=== PATIENT | male | born 1965 | race African-American/Black ===

== ENCOUNTER 2016-09-06 15:05 | Emergency (ER) | payer MEDICARE, MEDICAID ==
[2016-09-06] MEDS ORDERED: NITROGLYCERINE 2 % OINTMENT PACK TOP ONE (15:09)
--- NOTE | 2016-09-06 15:14 | EDPRACDOC ---
- General Information Chief Complaint: Chest Pain Stated Complaint: CP Time Seen by Provider: 09/06/16 15:08 Home Medications: Home Medications CloNIDine (Antihypertensive) [Catapres-TTS 1 (0.1 mg/24 hrs)] 0.1 mg TOP We@ 0900 #4 patch 05/29/16 Furosemide [Lasix] 40 mg PO DAILY #30 tablet 05/29/16 Lorazepam [Ativan] 1 mg PO Q6H PRN #60 tablet 05/29/16 Losartan/Hydrochlorothiazide [Hyzaar 100-12.5 Tablet] 1 tab PO DAILY #30 tablet 05/29/16 Nicotine [Nicoderm] 21 mg TOP Q24H #30 pat 05/29/16 Propranolol HCl [Inderal] 20 mg PO TID #100 tablet 05/29/16 Ondansetron [Zofran Odt] 4 mg PO Q6H PRN #20 tab.rapdis 09/06/16 Oxycodone HCl [Oxycodone Immediate Release] 10 mg PO Q6H PRN #30 tab 09/06/16 Allergies/Adverse Reactions: Allergies Allergy/AdvReac Type Severity Reaction Status Date / Time No Known Allergies Allergy Verified 07/03/16 17:37 - History of Present Illness HPI: PATIENT PRESENTS WITH BURNING CHEST PAIN MIDSTERNUM SINCE LAST NIGHT. GIVEN NITRO AND ASPIRIN WHICH HE FEELS HELPED HIS CHEST PAIN SLIGHTLY. NOT ASSOCIATED WITH EXERTION. HX OF ETOH ABUSE AND PANCREATITIS. Chest Pain Location: Reports: Substernal Pain Radiation: Reports: None Symptoms Occur: Reports: Suddenly Cardiac Risk Factors: Reports: Smoker, Hyperlipidemia, Hypertension Cardiac History of: Reports: Similar Pain in Past (WITH DRINKING ETOH) PE Risk Factors: Reports: None Medications within 24 Hours: Reports: Aspirin, Nitro Prehospital Care: Reports: SL NTG, ASA Pain Came On: Reports: Gradually Pain Status: Present Now Pain Description: Reports: Burning Pain Severity: Mild Pain Worsens With: Reports: Nothing Pain Improves With: Reports: Nitroglycerin Associated Signs and Symptoms: Reports: None ED Past Medical History - History Reviewed Yes Nurses notes reviewed and agree except as marked Travel Outside of [place] in the Last 3 Months?: No - Patient Medical History Neurological History: Reports: Seizures (History of seizures with DTs in the past.) Cardiac History: Reports: Hypertension. Denies: Coronary Artery Disease, Atrial Fibrillation, Congestive Heart Failure, Hypercholesterolemia Respiratory History: Reports: COPD, Cough (Morning cough), Chronic Bronchitis. Denies: Aspiration Pneumonia GI/ History: Reports: Renal Disease, Gastroesophageal Reflux, Pancreatitis Musculoskeletal History: Reports: Osteoarthritis Psychological History: Reports: Anxiety, Substance Use Disorder. Denies: Depression Systemic History: Denies: Diabetes, Hyperthyroidism Surgical History: Reports: Other (Neck surgery to repair a laceration) - Family Medical History Reports: Hypertension (Father), Diabetes (Aunt), Cancer (Mother). Denies: Stroke - Social Medical History Smoking Status: Current some day smoker (Can smoke up to 1 pack a day) Social History: Reports: Substance Use Disorder ETOH: Alcoholic Lives With: Family Lives In: Home EDM Review of Systems - Review of Systems ROS Negative Except as Marked: Yes All systems reviewed and were negative except as marked Constitutional: No Symptoms Reported. negative: Fever, Chills, Weakness, Fatigue, Loss of Appetite Eyes: No Symptoms Reported. negative: Redness, Blurred Vision, Double Vision, Discharge, Pain, Light Sensitive, Photophobia Ears: No Symptoms Reported. negative: Pain, Hearing Loss, Drainage, Ear Pulling Throat: No Symptoms Reported. negative: Pain, Swelling Nose: No Symptoms Reported. negative: Congestion, Bleeding, Discharge, Injection, Swelling, Deformity, Ecchymosis, Tender, Abrasion, Laceration Mouth: No Symptoms Reported. negative: Pain, Drooling Respiratory: No Symptoms Reported. negative: Cough, Brassy Cough, Barky Cough, Shortness of Breath, Wheezing, Hemoptysis Cardiovascular: Chest Pain. negative: Cyanosis, Edema, Orthopnea, Palpitations , PND, Syncope, Skin Mottling Gastrointestinal: No Symptoms Reported. negative: Pain, Constipation, Nausea, Vomiting, Diarrhea, Melena, Formula Intolerance Genitourinary: No Symptoms Reported. negative: Dysuria, Hematuria, Frequency, Discharge, Bleeding, Testicular Pain, Neurological: No Symptoms Reported. negative: Headache, Dizziness, Seizure, Numbness, Weakness, Speech Difficulty, Gait Difficulty Musculoskeletal: No Symptoms Reported. negative: Neck, Chestwall, Ribs, Back, Shoulder, Arm, Elbow, Forearm, Wrist, Hand, Pelvis, Hip, Femur, Knee, Leg, Ankle , Foot Integumentary: No Symptoms Reported. negative: Itching, Rash, Bruising, Wound Allergic/Immunologic: No Symptoms Reported. negative: Hives, Itching Hematologic: No Symptoms Reported. negative: Lymphadenopathy, Easy Bruising, Easy Bleeding Endocrine: No Symptoms Reported. negative: Weight Gain, Weight Loss Psychiatric: No Symptoms Reported. negative: Anxiety, Depression, Hallucinations, Insomnia, Suicidal - Physical Exam Constitutional: Alert (Awake), No apparent distress Oriented to: Time, Person, Place Last recorded Vital Signs: Oxygen Pulse Oxygen Saturation O2 Device Oxygen Flow Rate Fraction of Inspired Oxygen ( FIO2) - HEENT Head: Normal ( normocephalic) Eye Exam: Normal (PERRL, EOMI, Sclera white) Oropharynx: Normal (Pharynx:Moist without exudate,Gums-no swelling) Tympanic Membrane: Normal ENT EAC: Normal TMJ: Normal Nose: No Symptoms Reported (septum midline) Neck: Normal (FROM, trachea at midline) - Respiratory/Cardiovascular Respiratory: Normal - CTA (BBS clear to auscultation without adventitious sounds ) Cardiovascular: Normal (RRR without murmur, gallop or rub) - GI Auscultation: Normal (NABS) Palpation: Normal (Soft,No rebound or guarding, non distended) Tenderness: Non tender Quiñones's Sign: Negative - Musculoskeletal Back: Normal (Non-Tender) Extremities: Normal (Normal tone, Pulses 2+ No cyanosis or edema, FROM) - Integumentary Skin: Normal, Warm, Dry Lymphatics: Normal (no adenopathy) - Neurologic Memory Impaired: Normal Motor Function: Normal (Normal tone, Pulses 2+ No cyanosis or edema, FROM) Cranial Nerve: Normal (CN II-X11 intact sensation, strength 5/5) Cerebellar: Normal Mood Description: Normal Perception: Normal - Differential Diagnosis Angina, Chest wall pain, Pancreatitis - Action Patient received Aspirin within last 24 hours?: Yes ASA given in the ED: No Aspirin therapy held due to: Other-specify below* (GIVEN BY EMS) Patient received Beta Meme within last 24hrs: Yes - Results 09/06/16 15:15 09/06/16 15:15 - EKG EKG #1 EKG Time: 15:11 -: Yes EKG interpreted by me Rate: bpm: 84 [place]: Normal Rhythm: NSR Block: None Hypertrophy: None ST: Normal - Departure Yes I personally saw and evaluated the patient. Disposition: Home Condition: Good Final Diagnosis: Pancreatitis Qualifiers: Chronicity: acute Pancreatitis type: alcohol induced Acute pancreatitis complication: unspecified Qualified Code(s): K85.20 - Alcohol induced acute pancreatitis without necrosis or infection Instructions: Pancreatitis (ED) Education/Counseling Given To: Patient Education/Counseling Given Regarding: Diagnosis, Treatment, Prognosis, Follow Up Referrals: None,No Provider [Primary Care Provider] - One Week Alexandro Aleman MD [Staff Physician] - One Week Prescriptions: Ondansetron [Zofran Odt] 4 mg PO Q6H PRN #20 tab.rapdis PRN Reason: Nausea/Vomiting Oxycodone HCl [Oxycodone Immediate Release] 10 mg PO Q6H PRN #30 tab PRN Reason: Pain
[2016-09-06 15:25] VITALS: TEMP 97.9; BMI 29.0
--- NOTE | 2016-09-06 15:25 | DIRPT ---
CLINICAL DATA: 51-year-old male with chest pain EXAM: PORTABLE CHEST 1 VIEW COMPARISON: Prior chest x-ray 07/03/2016 FINDINGS: The lungs are clear and negative for focal airspace consolidation, pulmonary edema or suspicious pulmonary nodule. No pleural effusion or pneumothorax. Cardiac and mediastinal contours are within normal limits. No acute fracture or lytic or blastic osseous lesions. The visualized upper abdominal bowel gas pattern is unremarkable. IMPRESSION: Negative chest x-ray. Electronically Signed By: Michael Jalloh M.D. On: 09/06/2016 15:22
[2016-09-06 15:29] LABS: AUTOMATED BASOPHIL 0.4 % (0-2); AUTOMATED EOSINOPHIL 4.1 % (0-5); AUTOMATED LYMPH 13.5 % (17-44); AUTOMATED MONOCYTE 16.5 % (3-10); AUTOMATED NEUTROPHIL 65.5 % (45-76); MPV 9.4 fL (7.4-10.4)
[2016-09-06] MEDS ORDERED: MORPHINE 4 MG/ML INJECTION IV ONE (15:34)
[2016-09-06] MEDS ORDERED: ONDANSETRON HCL 4 MG/2 ML VIAL IV ONE (15:34)
[2016-09-06 15:40] LABS: BLOOD UREA NITROGEN 13 MG/DL (9-20); CALCIUM 9.1 MG/DL (8.4-10.2); CALCULATED OSMOLALITY 260 MOs/Kg (270-290); CHLORIDE 95 mEq/L (98-107); GLUCOSE 95 MG/DL (70-99); SODIUM LEVEL 135 mEq/L (137-146); TOTAL PROTEIN 7.6 G/DL (6.3-8.2)
[2016-09-06 15:49] LABS: PARTIAL THROMB. TIME 25.2 SEC (22-35)
[2016-09-06] MEDS ORDERED: HYDROmorphone 1 MG INJECTION IV ONE (17:05)
[2016-09-06 17:38] VITALS: BP 148/95; PULSE 85
== END 2016-09-06 17:37 | disposition home or self-care (01) ==
LOC: ED 15:05
DX: K85.20 Alcohol induced acute pancreatitis without necrosis or infection (principal)
CPT/HCPCS: 36415; 71010; 80053; 83615; 83690; 83880; 84484; 85025; 85610; 85730; 93005; 96374; 96375; 99284; J1170; J2270; J2405; J3490

== ENCOUNTER 2016-09-14 12:04 | Emergency (ER) | payer MEDICARE, MEDICAID ==
[2016-09-14] MEDS ORDERED: NS 1,000 ML IV ONE (12:15)
[2016-09-14] MEDS ORDERED: HYDROmorphone 1 MG INJECTION IV ONE (12:16)
[2016-09-14] MEDS ORDERED: HYDROmorphone 1 MG INJECTION ONE (12:31)
[2016-09-14 12:34] LABS: AUTOMATED BASOPHIL 0.6 % (0-2); AUTOMATED EOSINOPHIL 11.2 % (0-5); AUTOMATED MONOCYTE 19.5 % (3-10); AUTOMATED NEUTROPHIL 36.7 % (45-76); MPV 8.9 fL (7.4-10.4)
[2016-09-14 13:01] LABS: BLOOD UREA NITROGEN 7 MG/DL (9-20); CALCIUM 8.5 MG/DL (8.4-10.2); CALCULATED OSMOLALITY 280 MOs/Kg (270-290); CHLORIDE 108 mEq/L (98-107); GLUCOSE 118 MG/DL (70-99); SODIUM LEVEL 146 mEq/L (137-146); TOTAL PROTEIN 6.8 G/DL (6.3-8.2)
[2016-09-14 13:05] LABS: ALL NEG? YES; MDMA* NEG (NEGATIVE); METHAMPHETAMINES NEG (NEGATIVE); OXYCODONE NEG (NEGATIVE)
--- NOTE | 2016-09-14 13:08 | EDPRACDOC ---
- General Information Chief Complaint: Abdominal Pain Stated Complaint: CHEST PAIN Time Seen by Provider: 09/14/16 12:08 Home Medications: Home Medications CloNIDine (Antihypertensive) [Catapres-TTS 1 (0.1 mg/24 hrs)] 0.1 mg TOP We@ 0900 #4 patch 05/29/16 Furosemide [Lasix] 40 mg PO DAILY #30 tablet 05/29/16 Lorazepam [Ativan] 1 mg PO Q6H PRN #60 tablet 05/29/16 Losartan/Hydrochlorothiazide [Hyzaar 100-12.5 Tablet] 1 tab PO DAILY #30 tablet 05/29/16 Nicotine [Nicoderm] 21 mg TOP Q24H #30 pat 05/29/16 Propranolol HCl [Inderal] 20 mg PO TID #100 tablet 05/29/16 Ondansetron [Zofran Odt] 4 mg PO Q6H PRN #20 tab.rapdis 09/06/16 Oxycodone HCl [Oxycodone Immediate Release] 10 mg PO Q6H PRN #30 tab 09/06/16 Oxycodone HCl [Oxycodone Immediate Release] 10 mg PO Q6H PRN #30 tab 09/14/16 Allergies/Adverse Reactions: Allergies Allergy/AdvReac Type Severity Reaction Status Date / Time No Known Allergies Allergy Verified 09/14/16 13:22 - History of Present Illness HPI: C/o cp and epigastric pain starting today. Pt has hx of pancreatitis and etoh abuse. Pt states he ran out of his pain meds yesterday. Admits to drinking 1 pint of vodka today. Pain Location: Reports: Epigastric Pain Context: Reports: Spontaneous Pain Severity: Moderate Pain Quality: Reports: Burning Pain Radiation: Reports: Chest Modifying Factors: improves with: Nothing Associated Signs & Symptoms: Denies: Nausea, Frequency, Hematuria, Vomiting, Hematemesis, Anorexia, Diarrhea, Melena, Dysuria, Fever, Urgency, Other, Chills Oral Intake: Normal Urinary Output: Normal - Treatment Prior to ED Arrival Reported Medications/Treatment CARDIAC CARE NURSE EMS Treatment ALS IV Yes ED Past Medical History - History Reviewed Yes Nurses notes reviewed and agree except as marked - Patient Medical History Neurological History: Reports: Seizures (History of seizures with DTs in the past.) Cardiac History: Reports: Hypertension. Denies: Coronary Artery Disease, Atrial Fibrillation, Congestive Heart Failure, Hypercholesterolemia Respiratory History: Reports: COPD, Cough (Morning cough), Chronic Bronchitis. Denies: Aspiration Pneumonia GI/ History: Reports: Renal Disease, Gastroesophageal Reflux, Pancreatitis Musculoskeletal History: Reports: Osteoarthritis Psychological History: Reports: Anxiety, Substance Use Disorder. Denies: Depression Systemic History: Denies: Cancer, Diabetes, Hyperthyroidism Surgical History: Reports: Other (Neck surgery to repair a laceration) - Family Medical History Reports: Hypertension (Father), Diabetes (Aunt), Cancer (Mother). Denies: Stroke - Social Medical History Smoking Status: Current some day smoker (Can smoke up to 1 pack a day) Social History: Reports: Substance Use Disorder EDM Review of Systems - Review of Systems ROS Negative Except as Marked: Yes All systems reviewed and were negative except as marked Gastrointestinal: Pain - Physical Exam Constitutional: No apparent distress, Alert, ETOH Oriented to: Time, Person, Place Last recorded Vital Signs: Last Vital Signs Temp 97.5 F 09/14/16 12:04 Pulse 89 09/14/16 14:27 Resp 18 09/14/16 14:27 BP 128/82 09/14/16 14:27 Pulse Ox 94 09/14/16 14:27 Oxygen Pulse Oxygen Saturation 94 O2 Device Oxygen Flow Rate Fraction of Inspired Oxygen ( FIO2) - HEENT Head: Normal Eye Exam: negative: Conjunctival Injection, Scleral Icterus Oropharynx: negative: Drooling TMJ: Normal Nose: No Symptoms Reported Neck: Normal - Respiratory/Cardiovascular Respiratory: Normal - CTA Cardiovascular: Normal - GI Auscultation: Normal Palpation: Normal Tenderness: Mild, Epigastric Quiñones's Sign: Negative - Musculoskeletal Back: Normal Extremities: Normal - Integumentary Skin: Normal - Neurologic Mood Description: Normal - Results 09/14/16 12:20 09/14/16 12:43 WBC 7.0 xk/uL (3.8-10.8) 09/14/16 12:20 RBC 3.40 xM/uL (4.70-6.10) L 09/14/16 12:20 Hgb 10.9 g/dL (14.0-18.0) L 09/14/16 12:20 Hct 32.2 % (42-52) L 09/14/16 12:20 MCV 95 fL (80-94) H 09/14/16 12:20 MCH 32.0 pg (27-32) 09/14/16 12:20 MCHC 33.8 g/dl (33-36) 09/14/16 12:20 RDW 15.1 % (11.5-14.5) H 09/14/16 12:20 Plt Count 348 xk/uL (130-400) 09/14/16 12:20 MPV 8.9 fL (7.4-10.4) 09/14/16 12:20 Neut % (Auto) 36.7 % (45-76) L 09/14/16 12:20 Lymph % (Auto) 32.0 % (17-44) 09/14/16 12:20 [place] % (Auto) 19.5 % (3-10) H 09/14/16 12:20 Eos % (Auto) 11.2 % (0-5) H 09/14/16 12:20 Baso % (Auto) 0.6 % (0-2) 09/14/16 12:20 Absolute Neuts (auto) 2.52 xk/uL (1.7-8.2) 09/14/16 12:20 Absolute Lymphs (auto) 2.24 xk/uL (0.65-4.75) 09/14/16 12:20 PT 10.0 SEC (9.2-11.2) 09/14/16 12:20 INR 1.0 09/14/16 12:20 APTT 23.0 SEC (22-35) 09/14/16 12:20 Sodium 146 mEq/L (137-146) 09/14/16 12:43 Potassium 3.0 mEq/L (3.5-5.1) L 09/14/16 12:43 Chloride 108 mEq/L (98-107) H 09/14/16 12:43 Carbon Dioxide 25 mMOL/L (22-33) 09/14/16 12:43 Anion Gap 16 mEq/L (8-16) 09/14/16 12:43 BUN 7 MG/DL (9-20) L 09/14/16 12:43 Creatinine 0.70 MG/DL (0.66-1.25) 09/14/16 12:43 Estimated GFR (MDRD) > 60 mL/min (>=60) 09/14/16 12:43 Glucose 118 MG/DL (70-99) H 09/14/16 12:43 Calculated Osmolality 280 MOs/Kg (270-290) 09/14/16 12:43 Calcium 8.5 MG/DL (8.4-10.2) 09/14/16 12:43 Corrected Calcium 9.0 MG/DL (8.4-10.2) 09/14/16 12:43 Total Bilirubin 0.2 MG/DL (0.2-1.3) 09/14/16 12:43 AST 42 IU/L (17-59) 09/14/16 12:43 ALT 44 IU/L (21-72) 09/14/16 12:43 Alkaline Phosphatase 78 IU/L (38-126) 09/14/16 12:43 Lactate Dehydrogenase 426 IU/L (313-618) 09/14/16 12:43 Troponin I < 0.01 ng/mL (<.04) 09/14/16 12:43 Total Protein 6.8 G/DL (6.3-8.2) 09/14/16 12:43 Albumin 3.5 G/DL (3.5-5.0) 09/14/16 12:43 Lipase 2124 U/L (23-300) H 09/14/16 12:43 Urine Opiates Screen Neg (NEGATIVE) 09/14/16 12:52 Ur Oxycodone Screen Neg (NEGATIVE) 09/14/16 12:52 Urine Methadone Screen Neg (NEGATIVE) 09/14/16 12:52 Ur Barbiturates Screen Neg (NEGATIVE) 09/14/16 12:52 Ur Tricyclics Screen Neg (NEGATIVE) 09/14/16 12:52 Ur Phencyclidine Scrn Neg (NEGATIVE) 09/14/16 12:52 Ur Amphetamines Screen Neg (NEGATIVE) 09/14/16 12:52 U Methamphetamines Scrn Neg (NEGATIVE) 09/14/16 12:52 Urine MDMA Screen Neg (NEGATIVE) 09/14/16 12:52 U Benzodiazepines Scrn Neg (NEGATIVE) 09/14/16 12:52 Urine Cocaine Screen Neg (NEGATIVE) 09/14/16 12:52 Ur THC Screen Neg (NEGATIVE) 09/14/16 12:52 Lab Results 09/14/16 09/14/16 09/14/16 12:52 12:43 12:20 WBC RBC Hgb Hct MCV MCH MCHC RDW Plt Count MPV Neut % (Auto) Lymph % (Auto) [place] % (Auto) Eos % (Auto) Baso % (Auto) Absolute Neuts (auto) Absolute Lymphs (auto) PT 10.0 INR 1.0 APTT 23.0 Sodium 146 Potassium 3.0 L Chloride 108 H Carbon Dioxide 25 Anion Gap 16 BUN 7 L Creatinine 0.70 Estimated GFR (MDRD) > 60 Glucose 118 H Calculated Osmolality 280 Calcium 8.5 Corrected Calcium 9.0 Total Bilirubin 0.2 AST 42 ALT 44 Alkaline Phosphatase 78 Lactate Dehydrogenase 426 Troponin I < 0.01 Total Protein 6.8 Albumin 3.5 Lipase 2124 H Urine Opiates Screen Neg Ur Oxycodone Screen Neg Urine Methadone Screen Neg Ur Barbiturates Screen Neg Ur Tricyclics Screen Neg Ur Phencyclidine Scrn Neg Ur Amphetamines Screen Neg U Methamphetamines Scrn Neg Urine MDMA Screen Neg U Benzodiazepines Scrn Neg Urine Cocaine Screen Neg Ur THC Screen Neg 09/14/16 12:20 WBC 7.0 RBC 3.40 L Hgb 10.9 L Hct 32.2 L MCV 95 H MCH 32.0 MCHC 33.8 RDW 15.1 H Plt Count 348 MPV 8.9 Neut % (Auto) 36.7 L Lymph % (Auto) 32.0 [place] % (Auto) 19.5 H Eos % (Auto) 11.2 H Baso % (Auto) 0.6 Absolute Neuts (auto) 2.52 Absolute Lymphs (auto) 2.24 PT INR APTT Sodium Potassium Chloride Carbon Dioxide Anion Gap BUN Creatinine Estimated GFR (MDRD) Glucose Calculated Osmolality Calcium Corrected Calcium Total Bilirubin AST ALT Alkaline Phosphatase Lactate Dehydrogenase Troponin I Total Protein Albumin Lipase Urine Opiates Screen Ur Oxycodone Screen Urine Methadone Screen Ur Barbiturates Screen Ur Tricyclics Screen Ur Phencyclidine Scrn Ur Amphetamines Screen U Methamphetamines Scrn Urine MDMA Screen U Benzodiazepines Scrn Urine Cocaine Screen Ur THC Screen - EKG EKG #1 EKG Time: 12:12 -: Yes EKG interpreted by me Rate: bpm: 101 Rhythm: ST ST: Normal Decision Time to Discharge: 14:19 - Departure Disposition: Home Condition: Stable Final Diagnosis: Pancreatitis Qualifiers: Chronicity: acute Pancreatitis type: alcohol induced Acute pancreatitis complication: unspecified Qualified Code(s): K85.20 - Alcohol induced acute pancreatitis without necrosis or infection Instructions: Pancreatitis (ED) Education/Counseling Given To: Patient Education/Counseling Given Regarding: Diagnosis, Treatment, Prognosis, Follow Up Referrals: None,No Provider [Primary Care Provider] - One Week Howard Del Castillo MD [Staff Physician] - One Week Prescriptions: Oxycodone HCl [Oxycodone Immediate Release] 10 mg PO Q6H PRN #30 tab PRN Reason: Pain Additional Instructions: Follow up with primary care. Take oxycodone for pain. Please stop drinking as this causes your pancreatitis and pain. Return to ED for any new or worsening symptoms.
[2016-09-14 13:22] VITALS: TEMP 97.5; BMI 32.3
[2016-09-14] MEDS ORDERED: POTASSIUM CHLORIDE 20 MEQ TAB PO ONE (14:01)
--- NOTE | 2016-09-14 14:35 | DIRPT ---
CLINICAL DATA: Chest pain EXAM: PORTABLE CHEST 1 VIEW COMPARISON: September 06, 2016 FINDINGS: There is no edema or consolidation. The heart size and pulmonary vascularity are normal. No adenopathy. No pneumothorax. No bone lesions. IMPRESSION: No edema or consolidation. Electronically Signed By: Sonu Montanez III, M.D. On: 09/14/2016 14:33
[2016-09-14 14:48] VITALS: BP 128/82; PULSE 89
== END 2016-09-14 14:55 | disposition home or self-care (01) ==
LOC: ED 12:04
DX: K85.20 Alcohol induced acute pancreatitis without necrosis or infection (principal)
CPT/HCPCS: 36415; 71010; 80053; 80307; 83615; 83690; 84484; 85025; 85610; 85730; 93005; 96361; 96374; 99284; A9270; J1170; J3490

== ENCOUNTER 2016-09-17 11:07 | Emergency (ER) | payer MEDICARE, MEDICAID ==
--- NOTE | 2016-09-17 11:35 | EDPRACDOC ---
<Kee Nettles - Last Filed: 09/17/16 15:28> <Yahir Bradford - Last Filed: 09/17/16 17:10> - General Information Stated Complaint: CHEST PAIN Time Seen by Provider: 09/17/16 11:18 Home Medications: Home Medications CloNIDine (Antihypertensive) [Catapres-TTS 1 (0.1 mg/24 hrs)] 0.1 mg TOP We@ 0900 #4 patch 05/29/16 Furosemide [Lasix] 40 mg PO DAILY #30 tablet 05/29/16 Lorazepam [Ativan] 1 mg PO Q6H PRN #60 tablet 05/29/16 Losartan/Hydrochlorothiazide [Hyzaar 100-12.5 Tablet] 1 tab PO DAILY #30 tablet 05/29/16 Nicotine [Nicoderm] 21 mg TOP Q24H #30 pat 05/29/16 Propranolol HCl [Inderal] 20 mg PO TID #100 tablet 05/29/16 Ondansetron [Zofran Odt] 4 mg PO Q6H PRN #20 tab.rapdis 09/06/16 Oxycodone HCl [Oxycodone Immediate Release] 10 mg PO Q6H PRN #30 tab 09/14/16 Oxycodone HCl [Roxicodone] 5 mg PO Q4 PRN #7 tablet 09/17/16 Allergies/Adverse Reactions: Allergies Allergy/AdvReac Type Severity Reaction Status Date / Time No Known Allergies Allergy Verified 09/14/16 13:22 - History of Present Illness HPI: PT STARTED DRINKING LIQUOR AT 0800. AT THE SAME TIME DEVELOPED SEVERE EPIGASTRIC PAIN. DENIES GASTRIC ULCER, MELENA, BRBPR. (Kee Nettles) ED Past Medical History - History Reviewed Yes Nurses notes reviewed and agree except as marked - Patient Medical History Neurological History: Reports: Seizures (History of seizures with DTs in the past.) Cardiac History: Reports: Hypertension. Denies: Coronary Artery Disease, Atrial Fibrillation, Congestive Heart Failure, Hypercholesterolemia Respiratory History: Reports: COPD, Cough (Morning cough), Chronic Bronchitis. Denies: Aspiration Pneumonia GI/ History: Reports: Renal Disease, Gastroesophageal Reflux, Pancreatitis Musculoskeletal History: Reports: Osteoarthritis Psychological History: Reports: Anxiety, Substance Use Disorder. Denies: Depression Systemic History: Denies: Cancer, Diabetes, Hyperthyroidism Surgical History: Reports: Other (Neck surgery to repair a laceration) - Family Medical History Reports: Hypertension (Father), Diabetes (Aunt), Cancer (Mother). Denies: Stroke - Social Medical History Smoking Status: Current some day smoker (Can smoke up to 1 pack a day) Social History: Reports: Substance Use Disorder <Kee Nettles - Last Filed: 09/17/16 15:28> EDM Review of Systems - Review of Systems ROS Negative Except as Marked: Yes All systems reviewed and were negative except as marked Constitutional: No Symptoms Reported Respiratory: No Symptoms Reported Cardiovascular: No Symptoms Reported Gastrointestinal: Pain. negative: Nausea Genitourinary: No Symptoms Reported Neurological: No Symptoms Reported Musculoskeletal: No Symptoms Reported <Kee Nettles - Last Filed: 09/17/16 15:28> - Physical Exam Constitutional: No apparent distress, Alert (Awake), ETOH Oriented to: Time, Person, Place - HEENT Head: Normal ( normocephalic) Eye Exam: Normal (PERRL, EOMI, Sclera white) Oropharynx: Normal (Pharynx:Moist without exudate,Gums-no swelling) Nose: No Symptoms Reported (septum midline) Neck: Normal (FROM, trachea at midline) - Respiratory/Cardiovascular Respiratory: Normal - CTA (BBS clear to auscultation without adventitious sounds ) Cardiovascular: Normal (RRR without murmur, gallop or rub) - GI Auscultation: Normal (NABS) Palpation: Normal (,No rebound or guarding, non distended) Tenderness: Severe, Epigastric - Musculoskeletal Back: Normal (Non-Tender) Extremities: Normal (Normal tone, Pulses 2+ No cyanosis or edema, FROM) - Integumentary Skin: Normal, Warm, Dry Lymphatics: Normal (no adenopathy) - Neurologic Memory Impaired: Normal Motor Function: Normal (Normal tone, Pulses 2+ No cyanosis or edema, FROM) Cranial Nerve: Normal (CN II-X11 intact sensation, strength 5/5) Cerebellar: Normal Mood Description: Normal Perception: Normal <Kee Nettles - Last Filed: 09/17/16 15:28> - Results 09/17/16 12:15 09/17/16 12:15 - EKG EKG #1 EKG Time: 11:13 -: Yes EKG interpreted by me Rate: bpm: 97 [place]: Normal Rhythm: NSR Block: None Hypertrophy: None ST: Normal Comments: NORMAL EKG <Nettles,Kee - Last Filed: 09/17/16 15:28> - Results 09/17/16 12:15 09/17/16 12:15 <Yahir Bradford - Last Filed: 09/17/16 17:10> - Results WBC 5.8 xk/uL (3.8-10.8) 09/17/16 12:15 RBC 3.58 xM/uL (4.70-6.10) L 09/17/16 12:15 Hgb 11.4 g/dL (14.0-18.0) L 09/17/16 12:15 Hct 34.0 % (42-52) L 09/17/16 12:15 MCV 95 fL (80-94) H 09/17/16 12:15 MCH 31.7 pg (27-32) 09/17/16 12:15 MCHC 33.4 g/dl (33-36) 09/17/16 12:15 RDW 14.5 % (11.5-14.5) 09/17/16 12:15 Plt Count 357 xk/uL (130-400) 09/17/16 12:15 MPV 7.8 fL (7.4-10.4) 09/17/16 12:15 Neut % (Auto) 50.0 % (45-76) 09/17/16 12:15 Lymph % (Auto) 25.5 % (17-44) 09/17/16 12:15 [place] % (Auto) 13.8 % (3-10) H 09/17/16 12:15 Eos % (Auto) 10.1 % (0-5) H 09/17/16 12:15 Baso % (Auto) 0.6 % (0-2) 09/17/16 12:15 Absolute Neuts (auto) 2.90 xk/uL (1.7-8.2) 09/17/16 12:15 Absolute Lymphs (auto) 1.45 xk/uL (0.65-4.75) 09/17/16 12:15 PT 10.0 SEC (9.2-11.2) 09/17/16 12:15 INR 1.0 09/17/16 12:15 APTT 22.6 SEC (22-35) 09/17/16 12:15 Sodium 146 mEq/L (137-146) 09/17/16 12:15 Potassium 3.0 mEq/L (3.5-5.1) L 09/17/16 12:15 Chloride 105 mEq/L (98-107) 09/17/16 12:15 Carbon Dioxide 26 mMOL/L (22-33) 09/17/16 12:15 Anion Gap 18 mEq/L (8-16) H 09/17/16 12:15 BUN 6 MG/DL (9-20) L 09/17/16 12:15 Creatinine 0.70 MG/DL (0.66-1.25) 09/17/16 12:15 Estimated GFR (MDRD) > 60 mL/min (>=60) 09/17/16 12:15 Glucose 104 MG/DL (70-99) H 09/17/16 12:15 Calculated Osmolality 279 MOs/Kg (270-290) 09/17/16 12:15 Calcium 8.3 MG/DL (8.4-10.2) L 09/17/16 12:15 Corrected Calcium 8.7 MG/DL (8.4-10.2) 09/17/16 12:15 Total Bilirubin 0.3 MG/DL (0.2-1.3) 09/17/16 12:15 AST 45 IU/L (17-59) 09/17/16 12:15 ALT 40 IU/L (21-72) 09/17/16 12:15 Alkaline Phosphatase 81 IU/L (38-126) 09/17/16 12:15 Troponin I < 0.01 ng/mL (<.04) 09/17/16 12:15 Total Protein 7.0 G/DL (6.3-8.2) 09/17/16 12:15 Albumin 3.6 G/DL (3.5-5.0) 09/17/16 12:15 Lipase 1954 U/L (23-300) H 09/17/16 12:15 Plasma/Serum Ethyl Alc 0.44 % (<0.01) H* 09/17/16 12:15 Lab Results 09/17/16 09/17/16 09/17/16 12:15 12:15 12:15 WBC 5.8 RBC 3.58 L Hgb 11.4 L Hct 34.0 L MCV 95 H MCH 31.7 MCHC 33.4 RDW 14.5 Plt Count 357 MPV 7.8 Neut % (Auto) 50.0 Lymph % (Auto) 25.5 [place] % (Auto) 13.8 H Eos % (Auto) 10.1 H Baso % (Auto) 0.6 Absolute Neuts (auto) 2.90 Absolute Lymphs (auto) 1.45 PT 10.0 INR 1.0 APTT 22.6 Sodium 146 Potassium 3.0 L Chloride 105 Carbon Dioxide 26 Anion Gap 18 H BUN 6 L Creatinine 0.70 Estimated GFR (MDRD) > 60 Glucose 104 H Calculated Osmolality 279 Calcium 8.3 L Corrected Calcium 8.7 Total Bilirubin 0.3 AST 45 ALT 40 Alkaline Phosphatase 81 Troponin I < 0.01 Total Protein 7.0 Albumin 3.6 Lipase 1954 H Plasma/Serum Ethyl Alc 0.44 H* (Yahir Bradford) Decision Time to Discharge: 15:48 - Departure Yes I personally saw and evaluated the patient. Disposition: Home Education/Counseling Given To: Patient Education/Counseling Given Regarding: Diagnosis <Kee Nettles - Last Filed: 09/17/16 15:28> <Yahir Bradford - Last Filed: 09/17/16 17:10> - Departure Condition: Stable Final Diagnosis: Alcoholism /alcohol abuse Alcohol intoxication Qualifiers: Complication of substance-induced condition: uncomplicated Qualified Code(s): F10.120 - Alcohol abuse with intoxication, uncomplicated Pancreatitis Qualifiers: Chronicity: acute Pancreatitis type: alcohol induced Acute pancreatitis complication: unspecified Qualified Code(s): K85.20 - Alcohol induced acute pancreatitis without necrosis or infection Instructions: Pancreatitis (ED) Referrals: None,No Provider [Primary Care Provider] - One Week Prescriptions: Oxycodone HCl [Roxicodone] 5 mg PO Q4 PRN #7 tablet PRN Reason: Pain
--- NOTE | 2016-09-17 12:05 | DIRPT ---
CLINICAL DATA: Epigastric pain EXAM: PORTABLE CHEST 1 VIEW COMPARISON: 09/14/2016 FINDINGS: Cardiomediastinal silhouette is stable. No acute infiltrate or pleural effusion. No pulmonary edema. There is poor inspiration. Mild left basilar atelectasis. IMPRESSION: No infiltrate or pulmonary edema. Poor inspiration with mild left basilar atelectasis. Electronically Signed By: Jose Au M.D. On: 09/17/2016 12:02
[2016-09-17 12:15] VITALS: TEMP 98.6; BMI 30.4
[2016-09-17 12:29] LABS: AUTOMATED BASOPHIL 0.6 % (0-2); AUTOMATED EOSINOPHIL 10.1 % (0-5); AUTOMATED LYMPH 25.5 % (17-44); AUTOMATED MONOCYTE 13.8 % (3-10); MPV 7.8 fL (7.4-10.4)
[2016-09-17 12:42] LABS: PARTIAL THROMB. TIME 22.6 SEC (22-35)
[2016-09-17 12:44] LABS: BLOOD UREA NITROGEN 6 MG/DL (9-20); CALC CORRECTED 8.7 MG/DL (8.4-10.2); CALCIUM 8.3 MG/DL (8.4-10.2); CALCULATED OSMOLALITY 279 MOs/Kg (270-290); CHLORIDE 105 mEq/L (98-107); GLUCOSE 104 MG/DL (70-99); SODIUM LEVEL 146 mEq/L (137-146)
[2016-09-17 12:51] LABS: ETOH-MGDL 437 mg/dL
[2016-09-17] MEDS ORDERED: OXYCODONE HCL 5 MG TABLET PO ONE (15:50)
[2016-09-17] MEDS: LR 1,000 ML IV ONE ×2 (15:51→16:58)
[2016-09-17] MEDS ORDERED: HYDROmorphone 1 MG INJECTION IV ONE (16:12)
[2016-09-17 18:09] VITALS: BP 154/105; PULSE 96
== END 2016-09-17 18:14 | disposition home or self-care (01) ==
LOC: ED 11:07
DX: F10.229 Alcohol dependence with intoxication, unspecified (principal); K85.20 Alcohol induced acute pancreatitis without necrosis or infection
CPT/HCPCS: 36415; 71010; 80053; 80307; 83690; 84484; 85025; 85610; 85730; 93005; 96361; 96374; 99285; A9270; J1170; J3490

== ENCOUNTER 2016-09-21 16:34 | Emergency (ER) | payer MEDICARE, MEDICAID ==
[2016-09-21 16:52] VITALS: TEMP 98.6; BMI 29.0
[2016-09-21 17:17] LABS: AUTOMATED BASOPHIL 1.7 % (0-2); AUTOMATED EOSINOPHIL 4.8 % (0-5); AUTOMATED MONOCYTE 9.6 % (3-10); AUTOMATED NEUTROPHIL 67.9 % (45-76)
[2016-09-21 17:23] LABS: BLOOD UREA NITROGEN 7 MG/DL (9-20); CALCULATED OSMOLALITY 253 MOs/Kg (270-290); CHLORIDE 91 mEq/L (98-107); GLUCOSE 91 MG/DL (70-99); SODIUM LEVEL 132 mEq/L (137-146); TOTAL PROTEIN 7.8 G/DL (6.3-8.2)
[2016-09-21 17:31] LABS: PARTIAL THROMB. TIME 28.5 SEC (22-35); PT-INR 1.1
[2016-09-21] MEDS ORDERED: ASPIRIN (CHEWABLE) 81 MG TAB PO ONE (21:04)
--- NOTE | 2016-09-21 21:07 | EDPRACDOC ---
- General Information Chief Complaint: Chest Pain Stated Complaint: CHEST PAIN Time Seen by Provider: 09/21/16 20:46 Information Source: Patient Mode of Arrival: Car Home Medications: Home Medications CloNIDine (Antihypertensive) [Catapres-TTS 1 (0.1 mg/24 hrs)] 0.1 mg TOP We@ 0900 #4 patch 05/29/16 Furosemide [Lasix] 40 mg PO DAILY #30 tablet 05/29/16 Lorazepam [Ativan] 1 mg PO Q6H PRN #60 tablet 05/29/16 Losartan/Hydrochlorothiazide [Hyzaar 100-12.5 Tablet] 1 tab PO DAILY #30 tablet 05/29/16 Nicotine [Nicoderm] 21 mg TOP Q24H #30 pat 05/29/16 Propranolol HCl [Inderal] 20 mg PO TID #100 tablet 05/29/16 Ondansetron [Zofran Odt] 4 mg PO Q6H PRN #20 tab.rapdis 09/06/16 Oxycodone HCl [Oxycodone Immediate Release] 10 mg PO Q6H PRN #30 tab 09/14/16 Oxycodone HCl [Roxicodone] 5 mg PO Q4 PRN #7 tablet 09/17/16 Allergies/Adverse Reactions: Allergies Allergy/AdvReac Type Severity Reaction Status Date / Time No Known Allergies Allergy Verified 09/14/16 13:22 - History of Present Illness Onset: one week HPI: THIS AM MID ABD PAIN THAT THEN STARTED RADIATING UP TO THE CHEST. 06/06. IF PT EXERTS HIMSELF OR BENDS DOWN PAIN IS WORSE. SOME SOB. + SMOKER. + HTN, NO CAD IN IMMEDIATE FAMILY. PT DENIES DRUG USE. PT DOES DRINK ETOH . MILD PANCREATITIS ON PRIOR VISITS. ED Past Medical History - Patient Medical History Neurological History: Reports: Seizures (History of seizures with DTs in the past.) Cardiac History: Reports: Hypertension. Denies: Coronary Artery Disease, Atrial Fibrillation, Congestive Heart Failure, Hypercholesterolemia Respiratory History: Reports: COPD, Cough (Morning cough), Chronic Bronchitis. Denies: Aspiration Pneumonia GI/ History: Reports: Renal Disease, Gastroesophageal Reflux, Pancreatitis Musculoskeletal History: Reports: Osteoarthritis Psychological History: Reports: Anxiety, Substance Use Disorder. Denies: Depression Systemic History: Denies: Cancer, Diabetes, Hyperthyroidism Surgical History: Reports: Other (Neck surgery to repair a laceration) - Family Medical History Reports: Hypertension (Father), Diabetes (Aunt), Cancer (Mother). Denies: Stroke - Social Medical History Smoking Status: Current some day smoker Social History: Reports: Substance Use Disorder EDM Review of Systems - Review of Systems ROS Negative Except as Marked: Yes All systems reviewed and were negative except as marked Constitutional: No Symptoms Reported. negative: Fever Respiratory: Shortness of Breath Cardiovascular: Chest Pain - Physical Exam Constitutional: Alert (Awake), No apparent distress Oriented to: Time, Person, Place Last recorded Vital Signs: Last Vital Signs Temp 98.6 F 09/21/16 19:30 Pulse 87 09/21/16 19:30 Resp 20 09/21/16 19:30 BP 159/111 H 09/21/16 19:30 Pulse Ox 100 09/21/16 19:30 Oxygen Pulse Oxygen Saturation 100 O2 Device Room Air Oxygen Flow Rate Fraction of Inspired Oxygen ( FIO2) - HEENT Head: Normal ( normocephalic) Eye Exam: Normal (PERRL, EOMI, Sclera white) Oropharynx: Normal (Pharynx:Moist without exudate,Gums-no swelling) Nose: No Symptoms Reported (septum midline) Neck: Normal (FROM, trachea at midline) - Respiratory/Cardiovascular Respiratory: Normal - CTA (BBS clear to auscultation without adventitious sounds ) Cardiovascular: Normal (RRR without murmur, gallop or rub) - GI Auscultation: Normal (NABS) Palpation: Normal (Soft,No rebound or guarding, non distended) Tenderness: Mild, Epigastric Quiñones's Sign: Negative - Musculoskeletal Back: Normal (Non-Tender) Extremities: Normal (Normal tone, Pulses 2+ No cyanosis or edema, FROM) - Integumentary Skin: Normal, Warm, Dry Lymphatics: Normal (no adenopathy) - Neurologic Memory Impaired: Normal Motor Function: Normal (Normal tone, Pulses 2+ No cyanosis or edema, FROM) Cranial Nerve: Normal (CN II-X11 intact sensation, strength 5/5) Cerebellar: Normal Mood Description: Normal Perception: Normal - Action ASA given in the ED: Yes - Results 09/21/16 16:57 09/21/16 16:57 WBC 7.5 xk/uL (3.8-10.8) 09/21/16 16:57 RBC 4.01 xM/uL (4.70-6.10) L 09/21/16 16:57 Hgb 12.7 g/dL (14.0-18.0) L D 09/21/16 16:57 Hct 38.5 % (42-52) L 09/21/16 16:57 MCV 96 fL (80-94) H 09/21/16 16:57 MCH 31.7 pg (27-32) 09/21/16 16:57 MCHC 33.0 g/dl (33-36) 09/21/16 16:57 RDW 14.6 % (11.5-14.5) H 09/21/16 16:57 Plt Count 255 xk/uL (130-400) 09/21/16 16:57 MPV 9.0 fL (7.4-10.4) 09/21/16 16:57 Neut % (Auto) 67.9 % (45-76) 09/21/16 16:57 Lymph % (Auto) 16.0 % (17-44) L 09/21/16 16:57 [place] % (Auto) 9.6 % (3-10) 09/21/16 16:57 Eos % (Auto) 4.8 % (0-5) 09/21/16 16:57 Baso % (Auto) 1.7 % (0-2) 09/21/16 16:57 Absolute Neuts (auto) 5.03 xk/uL (1.7-8.2) 09/21/16 16:57 Absolute Lymphs (auto) 1.20 xk/uL (0.65-4.75) 09/21/16 16:57 PT 11.0 SEC (9.2-11.2) 09/21/16 16:57 INR 1.1 09/21/16 16:57 APTT 28.5 SEC (22-35) 09/21/16 16:57 Sodium 132 mEq/L (137-146) L 09/21/16 16:57 Potassium 3.2 mEq/L (3.5-5.1) L 09/21/16 16:57 Chloride 91 mEq/L (98-107) L 09/21/16 16:57 Carbon Dioxide 27 mMOL/L (22-33) 09/21/16 16:57 Anion Gap 17 mEq/L (8-16) H 09/21/16 16:57 BUN 7 MG/DL (9-20) L 09/21/16 16:57 Creatinine 0.80 MG/DL (0.66-1.25) 09/21/16 16:57 Estimated GFR (MDRD) > 60 mL/min (>=60) 09/21/16 16:57 Glucose 91 MG/DL (70-99) 09/21/16 16:57 Calculated Osmolality 253 MOs/Kg (270-290) L 09/21/16 16:57 Calcium 9.0 MG/DL (8.4-10.2) 09/21/16 16:57 Total Bilirubin 1.1 MG/DL (0.2-1.3) 09/21/16 16:57 AST 49 IU/L (17-59) 09/21/16 16:57 ALT 39 IU/L (21-72) 09/21/16 16:57 Alkaline Phosphatase 104 IU/L (38-126) 09/21/16 16:57 Troponin I < 0.01 ng/mL (<.04) 09/21/16 16:57 Cct-[id number] Pept 1220 pg/mL (0-450) H 09/21/16 16:57 Total Protein 7.8 G/DL (6.3-8.2) 09/21/16 16:57 Albumin 4.2 G/DL (3.5-5.0) 09/21/16 16:57 Lab Results 09/21/16 09/21/16 09/21/16 16:57 16:57 16:57 WBC 7.5 RBC 4.01 L Hgb 12.7 L D Hct 38.5 L MCV 96 H MCH 31.7 MCHC 33.0 RDW 14.6 H Plt Count 255 MPV 9.0 Neut % (Auto) 67.9 Lymph % (Auto) 16.0 L [place] % (Auto) 9.6 Eos % (Auto) 4.8 Baso % (Auto) 1.7 Absolute Neuts (auto) 5.03 Absolute Lymphs (auto) 1.20 PT 11.0 INR 1.1 APTT 28.5 Sodium 132 L Potassium 3.2 L Chloride 91 L Carbon Dioxide 27 Anion Gap 17 H BUN 7 L Creatinine 0.80 Estimated GFR (MDRD) > 60 Glucose 91 Calculated Osmolality 253 L Calcium 9.0 Total Bilirubin 1.1 AST 49 ALT 39 Alkaline Phosphatase 104 Troponin I < 0.01 [id number] Pept 1220 H Total Protein 7.8 Albumin 4.2 Laboratory Results - last 24 hr 09/21/16 09/21/16 09/21/16 16:57 16:57 16:57 WBC 7.5 RBC 4.01 L Hgb 12.7 L D Hct 38.5 L MCV 96 H MCH 31.7 MCHC 33.0 RDW 14.6 H Plt Count 255 MPV 9.0 Neut % (Auto) 67.9 Lymph % (Auto) 16.0 L [place] % (Auto) 9.6 Eos % (Auto) 4.8 Baso % (Auto) 1.7 Absolute Neuts (auto) 5.03 Absolute Lymphs (auto) 1.20 PT 11.0 INR 1.1 APTT 28.5 Sodium 132 L Potassium 3.2 L Chloride 91 L Carbon Dioxide 27 Anion Gap 17 H BUN 7 L Creatinine 0.80 Estimated GFR (MDRD) > 60 Glucose 91 Calculated Osmolality 253 L Calcium 9.0 Total Bilirubin 1.1 AST 49 ALT 39 Alkaline Phosphatase 104 Troponin I < 0.01 Xgz-T-Hzrayuqdxlp Pept 1220 H Total Protein 7.8 Albumin 4.2 Laboratory Results 09/21/16 16:57 09/21/16 16:57 - EKG EKG #1 EKG Time: 16:44 -: Yes EKG interpreted by me Rate: bpm: 84 [place]: Normal Rhythm: NSR Hypertrophy: LVH ST: Normal Comments: ABNORMAL EKG Decision Time to Discharge: 21:52 - Departure Yes I personally saw and evaluated the patient. Disposition: Home Condition: Stable Final Diagnosis: Epigastric abdominal pain Instructions: Abdominal Pain (ED) Education/Counseling Given To: Patient Education/Counseling Given Regarding: Diagnosis Referrals: None,No Provider [Primary Care Provider] - One Week Additional Instructions: STOP DRINKING ALCOHOL.
[2016-09-21] MEDS ORDERED: ONDANSETRON HCL 4 MG ODT TAB PO ONE (21:09)
[2016-09-21] MEDS ORDERED: OXYCODONE HCL 5 MG TABLET PO ONE (21:09)
--- NOTE | 2016-09-21 21:13 | DIRPT ---
CLINICAL DATA: Sharp substernal chest pain for 1 week EXAM: PORTABLE CHEST 1 VIEW COMPARISON: September 17, 2016 FINDINGS: There is no edema or consolidation. Heart size and pulmonary vascularity are normal. No adenopathy. No pneumothorax. No bone lesions. IMPRESSION: No edema or consolidation. Electronically Signed By: Sonu Montanez III, M.D. On: 09/21/2016 21:10
[2016-09-21 22:45] VITALS: BP 184/118; PULSE 70
== END 2016-09-21 22:41 | disposition home or self-care (01) ==
LOC: ED 16:34
DX: R10.13 Epigastric pain (principal)
CPT/HCPCS: 36415; 71010; 80053; 83690; 83880; 84484; 85025; 85610; 85730; 93005; 99284; A9270; J3490